=== PATIENT | female | born 1975 | race American Indian/Alaskan Native ===

== ENCOUNTER 2017-04-18 15:31 | Outpatient (CLI) | payer BC ==
--- NOTE | 2017-04-19 14:02 | Mammography Report ---
BILATERAL DIGITAL SCREENING MAMMOGRAM with CAD: 04/18/17 15:31:00 CLINICAL: Routine screening. COMPARISON:04/20/15 FINDINGS: The breasts are mostly fatty with a few bilateral scattered fibroglandular densities. No mass, architectural distortion or suspicious calcifications. IMPRESSION: No mammographic evidence of malignancy. BI-RADS CATEGORY: 1 - - Negative RECOMMENDATION: Routine mammographic screening in one year. COMMENT: Patient follow-up letters are generated by our [employer] application.
== END 2017-04-18 15:32 | disposition home or self-care (01) ==
LOC: SPVWC 15:31
PROVIDERS: ATTEND General Practice
DX: Z12.31 Encounter for screening mammogram for malignant neoplasm of breast (principal)
CPT/HCPCS: 77067

== ENCOUNTER 2020-08-20 20:20 | Emergency (ER) | payer BC, OTHER ==
[2020-08-20] MEDS ORDERED: IBUPROFEN 600 MG TAB PO ONE (22:37)
[2020-08-20] MEDS ORDERED: CYCLOBENZAPRINE 10 MG TAB PO ONE (22:37)
[2020-08-20] MEDS ORDERED: ACETAMINOPHEN 500 MG TAB PO ONE (22:37)
[2020-08-20 22:52] VITALS: BP 141/71
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
== END 2020-08-21 00:44 | disposition home or self-care (01) ==
LOC: ED 20:20
DX: M62.838 Other muscle spasm (principal); Z79.899 Other long term (current) drug therapy; V49.49XA Driver injured in collision with other motor vehicles in traffic accident, initial encounter; Y92.410 Unspecified street and highway as the place of occurrence of the external cause; Y93.89 Activity, other specified; Y99.8 Other external cause status
CPT/HCPCS: 72125